=== PATIENT | male | born 1960 | race Caucasian/White ===

== ENCOUNTER 2022-07-16 00:19 | Day surgery (SDC) | payer BC, SELFPAY ==
[2022-07-07 09:55] VITALS: BMI 22.6
[2022-07-16 07:03] VITALS: BP 121/77; PULSE 61; RESP 19; TEMP 36.2; O2SAT 100
[2022-07-16] MEDS: LACTATED RINGERS 1,000 ML 150 ML IV CONT (07:15)
--- NOTE | 2022-07-16 08:01 | PM.HPGS ---
History of Present Illness History of Present Illness Consent: Risks, benefits, and alternatives have been discussed and questions answered. Patient agrees to proceed with procedure. Chief complaint: hx colon polyps Narrative: Manan Noland is a 62 year old male with colon polyps in 2015 Review of Systems Constitutional: Constitutional: Denies headache(s) and Denies weakness Eyes: Eyes: Denies blurry vision ENT: Reports Normal hearing present, Denies headache(s) and Denies neck pain Cardiovascular: Cardiovascular: Denies chest pain and Denies dyspnea Respiratory: Respiratory: Denies dyspnea Gastrointestinal: Gastrointestinal: Reports no additional gastrointestinal complaints Genitourinary: Genitourinary: Denies dysuria Musculoskeletal: Musculoskeletal: Denies neck pain Integumentary/Breasts: Skin/Breast: Denies dry skin Neurologic: Reports Normal hearing present, Denies headache(s) and Denies weakness Psychiatric: Psychiatric: Denies anxiety Endocrine: Endocrine: Denies change in body appearance Hematologic/Lymphatic: Hematologic/Lymphatic: Denies easy bleeding Allergic/Immunologic: Allergic/Immunologic: Denies urticaria [facility] Past Medical History Medical History (Updated 09/11/21 @ 16:32 by Hamlet Joseph MD) Abnormal fasting glucose (09/10/21) Fasting glucose 104 on 09/10/2021. BMI 24.0-24.9, adult Elevated PSA, less than 10 ng/ml (10/29/20) PSA elevated at 4.32 on 10/29/2020. PSA 3.7 with 24% free PSA on 09/10/2021. Encounter for prostate cancer screening Encounter for wellness examination in adult Mixed hyperlipidemia (10/29/20) Total cholesterol 220, HDL 48.8, triglycerides 118, LDL 147 on 10/29/2020. total cholesterol 213, triglycerides 106, HDL 45 and LDL 146 on 09/10/2021. Peyronie's syndrome Polyp of colon Four polyps 2015. Seasonal allergic rhinitis Family History Family History (Updated 08/29/21 @ 10:27 by Amaya Pimentel MA) Father Hypertension Heart disease Social History Social History Smoking status: Never smoker Alcohol intake: current Drinks per week: 7 Alcohol use details: socially Substance use: never Substance use type: does not use Living arrangements: with family Spiritual care concerns: No Meds Home Medications and Allergies Home Medications Medication Instructions Recorded Confirmed Type No Home Medications 08/29/21 07/16/22 History Allergies Allergy/AdvReac Type Severity Reaction Status Date / Time No Known Allergies Allergy Verified 07/16/22 07:02 Vital Signs Vital Signs - 24 hr 07/16/22 07:03 Temperature 97.1 F L Pulse Rate 61 Respiratory Rate 19 Blood Pressure 121/77 Pulse Oximetry 100 Oxygen Delivery Room Air Exam Const: General: comfortable and no acute distress HENMT: Face/Nose/Sinus: Normal nares present Eyes: General: appearance normal, both eyes and all related structures Neck: Neck: no JVD Resp: Auscultation: clear to auscultation bilaterally Cardio: Rate: regular rate Rhythm: regular rhythm GI: Inspection: non-distended GI Palp: Yes Soft to palpation Skin: General skin exam: normal color Neuro: General: gait normal Speech: normal speech Extrem: General: normal to inspection Psych: Mental Status: mental status grossly normal Assessment and Plan Assessment and plan (1) Polyp of colon: Qualifiers: Colon polyp type: unspecified Colon location: unspecified part of colon Qualified Code(s): K63.5 - Polyp of colon Code(s): K63.5 - Polyp of colon Status: Acute Assessment and Plan: colonoscopy
[2022-07-16 08:17] VITALS: BP 98/60; PULSE 77; RESP 19; O2SAT 100
[2022-07-16 08:27] VITALS: BP 103/66; PULSE 66; RESP 19; O2SAT 100
[2022-07-16 08:37] VITALS: BP 117/77; PULSE 57; RESP 15; O2SAT 100
== END 2022-07-16 08:44 | disposition home or self-care (01) ==
PROVIDERS: PCP Family Medicine; Visit Provider Internal Medicine Gastroenterology
PROC: 0DJD8ZZ Inspection of Lower Intestinal Tract, Via Natural or Artificial Opening Endoscopic (ICD-10-PCS; CPT 45378; principal; 2022-07-16 08:30)
DX: Z12.11 Encounter for screening for malignant neoplasm of colon (principal); Z86.010 Personal history of colon polyps; E78.5 Hyperlipidemia, unspecified
CPT/HCPCS: 45378; J2704; J7120

== ENCOUNTER → 2022-09-02 08:46 | Outpatient (CLI) | payer BC, SELFPAY ==
--- NOTE | ~2022-09-02 | XR_ITS ---
AP view of the pelvis and AP and lateral views of the right hip Clinical history: Pain Findings: No acute fracture or dislocation is seen. Osseous alignment is anatomic. Bilateral hip and SI joint spaces are preserved. Soft tissues are unremarkable. Impression: No significant abnormality is seen. Reviewed, dictated and finalized at [facility]. Impression: No significant abnormality is seen.
== END ==
PROVIDERS: PCP Family Medicine; Visit Provider Family Medicine
DX: M25.551 Pain in right hip (principal); G89.29 Other chronic pain
CPT/HCPCS: 73502